=== PATIENT | male | born 1995 | race Caucasian/White ===

== ENCOUNTER 2019-12-13 21:35 | Emergency (ER) | payer MEDICAID, OTHER ==
[~2019-12-13] VITALS: Ht 175.3 cm; Wt 97.5 kg
[2019-12-13 22:25] LABS: Basophils # (auto) 0.1 10 ^3/uL (0-0.2); Basophils % (auto) 0.6 % (0.0-2.0); Eosinophils # (auto) 0.3 10 ^3/uL (0-0.8); Eosinophils % (auto) 2.6 % (0.0-7.0); Hemoglobin 15.9 g/dL (13.5-17.5); Lymphocytes # (auto) 1.4 10 ^3/uL (0.4-5.4); Lymphocytes % (auto) 11.8 % (10.0-50.0); Mean Corpuscular Hemoglobin 30.4 pg (28.0-32.0); Mean Corpuscular Hgb Conc. 34.5 g/dL (32.0-36.0); Mean Corpuscular Volume 88.2 fL (80.0-100.0); Monocytes # (auto) 0.9 10 ^3/uL (0-1.3); Monocytes % (auto) 7.2 % (0.0-12.0); Neutrophils # (auto) 9.4 10 ^3/uL (1.6-8.6); Neutrophils % (auto) 77.8 % (37.0-80.0); Nucleated Red Blood Cells % 0.1 %; Platelet Count (auto) 162 10^3/uL (140-450); Red Blood Cells 5.22 10^6/uL (4.5-5.90); Red Cell Distribution Width 13.6 % (11.8-14.3); White Blood Cell 12.1 10^3/uL (4.4-10.8)
[2019-12-13 22:45] LABS: Albumin 3.7 g/dL (3.4-5.0); Anion Gap 8 (5-15); BUN/Creatinine Ratio 7.5; Blood Alcohol < 3.0 mg/dL (0-5); Blood Urea Nitrogen 8 mg/dL (7-18); Calcium 8.5 mg/dL (8.5-10.1); Carbon Dioxide 26 mmol/L (21-32); Chloride 103 mmol/L (98-107); GFR African American 109 mL/min; GFR Non-African American 90 mL/min; Glucose 108 mg/dL (74-106); Magnesium 1.8 mg/dL (1.6-2.6); Potassium 3.5 mmol/L (3.5-5.1); Salicylate 4.7 mg/dL (2.8-20.0); Sodium 137 mmol/L (136-145)
[2019-12-13] MEDS ORDERED: SODIUM CHLORIDE 0.9% 2,000 ML IV ONE (22:45)
[2019-12-13 22:48] LABS: Alanine Aminotransferase 35 U/L (16-61); Alkaline Phosphatase 113 U/L (45-117); Aspartate Aminotransferase 20 U/L (15-37); Bilirubin, Total 0.4 mg/dL (0.2-1.0); Total Protein 7.4 g/dL (6.4-8.2)
[2019-12-13 22:51] LABS: Acetaminophen < 2.0 ug/mL (10-30)
[2019-12-14 04:09] LABS: Urine Bacteria NONE SEEN /hpf (None Seen); Urine Blood Negative /uL (Negative); Urine Specific Gravity 1.007 (1.001-1.035); Urine WBC 1 /hpf (0 - 3)
[2019-12-14 04:28] LABS: Amphetamine Screen, Urine NEGATIVE (NEGATIVE); Barbiturate Scree,Urine NEGATIVE (NEGATIVE); Benzodiazephine Screen, Urine NEGATIVE (NEGATIVE); Cannabinoid Screen, Urine POSITIVE (NEGATIVE); Cocaine Screen, Urine POSITIVE (NEGATIVE); Opiate Scree,Urine NEGATIVE (NEGATIVE); Phencyclidine Screen, Urine NEGATIVE (NEGATIVE)
[2019-12-15] MEDS ORDERED: busPIRone HCL 10 MG TAB PO SCH (14:00)
[2019-12-15 16:35] VITALS: BP 151/95
[2019-12-15] MEDS ORDERED: BENZTROPINE MESY 0.5 MG TAB PO SCH (22:00)
[2019-12-15] MEDS ORDERED: risperiDONE 1 MG TAB PO SCH (22:00)
[2019-12-16] MEDS ORDERED: FLUoxetine HCL 20 MG CAP PO SCH (10:00)
== END 2019-12-15 14:24 | disposition short-term general hospital (02) ==
LOC: ER 21:36
DX: T43.591A Poisoning by other antipsychotics and neuroleptics, accidental (unintentional), initial encounter (principal); F41.9 Anxiety disorder, unspecified; F20.9 Schizophrenia, unspecified; F32.9 Major depressive disorder, single episode, unspecified; F17.210 Nicotine dependence, cigarettes, uncomplicated; Y92.89 Other specified places as the place of occurrence of the external cause
CPT/HCPCS: 36415; 71045; 80053; 80307; 80320; 80329; 81001; 83735; 85025; 93005; 99285; J7030